=== PATIENT | male | born 1960 | race Caucasian/White ===

== ENCOUNTER 2021-08-08 16:47 | Emergency (ER) | payer BC ==
[~2021-08-08] VITALS: Ht 182.9 cm; Wt 94.3 kg
--- NOTE | 2021-08-08 17:18 | NUR ---
Dr Laureano at the bedside for MSE.
[2021-08-08] MEDS ORDERED: IV NORMAL SALINE 1000 ML BAG IV ONE (17:30)
[2021-08-08 17:44] LABS: HEMATOCRIT 41.9 % (36.7-47.1); MEAN CORPUSCULAR HEMOGLOBIN 30.4 uug (23.8-33.4); MEAN CORPUSCULAR VOLUME 88.1 fL (73.0-96.2); PLATELET COUNT (AUTO) 192 K/uL (152-348)
[2021-08-08 17:49] LABS: CARBON DIOXIDE 29 mmol/L (21-32); CHLORIDE 99 mmol/L (98-107); GLUCOSE 106 mg/dL (74-106); POTASSIUM 4.3 mmol/L (3.5-5.1); UREA NITROGEN, BLOOD 9 mg/dL (7-18)
--- NOTE | 2021-08-08 17:52 | NUR ---
Pt signed the consent for IV contrasted Ct, placed in the chart.
[2021-08-08 17:57] LABS: ALANINE AMINOTRANSFERASE 53 U/L (16-63); ALKALINE PHOSPHATASE 39 U/L (50-136); ASPARTATE AMINOTRANSFERASE 22 U/L (15-37); BILIRUBIN,DIRECT 0.1 mg/dL (0.0-0.2); BILIRUBIN,TOTAL 0.3 mg/dL (0.2-1.0); TOTAL PROTEIN, SERUM 7.5 g/dL (6.4-8.2)
[2021-08-08] MEDS ORDERED: ALFU10TA PO (18:03)
[2021-08-08] MEDS ORDERED: CETI-90 PO (18:03)
[2021-08-08] MEDS ORDERED: FAMO-132 PO (18:03)
[2021-08-08] MEDS ORDERED: SPIR50TA5 PO (18:03)
[2021-08-08] MEDS ORDERED: CHOL200026 PO (18:03)
[2021-08-08] MEDS ORDERED: ESCI5TAB PO (18:03)
[2021-08-08] MEDS ORDERED: UBID100C13 PO (18:03)
[2021-08-08] MEDS ORDERED: CLON0.5T PO (18:03)
[2021-08-08] MEDS ORDERED: [UNRECOGNIZED DRUG - OTHER] PO (18:03)
[2021-08-08] MEDS ORDERED: SENN-261 PO (18:03)
[2021-08-08] MEDS ORDERED: IV NORMAL SALINE 250 ML IV ONE (18:10)
[2021-08-08] MEDS ORDERED: SWABABLE VALVE TRANSFER SET EA MC ONE (18:10)
[2021-08-08] MEDS ORDERED: IOHEXOL 350 100 ML INFUS..BTL ONE (18:10)
--- NOTE | 2021-08-08 18:35 | NUR ---
PT out of ER for Ct scans.
[2021-08-08] MEDS ORDERED: HYDROMORPHONE 1 MG/1 ML DISP.SYRIN IV ONE ×2 (19:45→20:15)
[2021-08-08] MEDS ORDERED: ONDANSETRON 4 MG/2 ML VIAL IV ONE (19:45)
[2021-08-08] MEDS ORDERED: ONDANSETRON 4 MG/2 ML VIAL ONE (19:48)
[2021-08-08] MEDS ORDERED: HYDROMORPHONE 1 MG/1 ML DISP.SYRIN ONE ×2 (19:48→20:29)
[2021-08-08] MEDS ORDERED: ONDA4TAB5 PO (20:14)
[2021-08-08] MEDS ORDERED: HYDR-4209 PO (20:14)
--- NOTE | 2021-08-08 20:51 | NUR ---
Patient discharged to home in stable condition. Written and verbal after care instructions given. Patient verbalizes understanding of instructions. Stressed follow up or return to ER for worsening s/s. pt ambulated with steady gait. pt accompanied with .
[2021-08-08 21:03] VITALS: BP 125/72
== END 2021-08-08 21:04 | disposition home or self-care (01) ==
LOC: ER 16:47
DX: R51.9 Headache, unspecified (principal); Z98.42 Cataract extraction status, left eye; Z98.41 Cataract extraction status, right eye; E78.5 Hyperlipidemia, unspecified; F41.8 Other specified anxiety disorders; N42.9 Disorder of prostate, unspecified; Z79.899 Other long term (current) drug therapy; S09.90XD Unspecified injury of head, subsequent encounter; W18.2XXD Fall in (into) shower or empty bathtub, subsequent encounter; I65.22 Occlusion and stenosis of left carotid artery
CPT/HCPCS: 36415; 70450; 70496; 70498; 71250; 80048; 80076; 84484 ×2; 85025; 85730; 96361; 96374; 96375; 96376; 99285; J1170 ×2; J2405; Q9967; A4663; J7050